=== PATIENT | female | born 1990 | race American Indian/Alaskan Native ===

== ENCOUNTER 2018-04-21 10:12 | Emergency (ER) | payer OTHER ==
[2018-04-21 10:35] VITALS: BP 123/78
[2018-04-21 13:26] LABS: Bilirubin,Urine NEG (Negative); Blood,Urine NEG (Negative); Color,Urine Yellow (Yellow); Mucus,Urine FEW /HPF; Protein,Urine <15 mg/dL mg/dL (Negative); Urobilinogen,Urine < 2.0 mg/dL (<2.0); WBC,Urine < 1.0 /HPF (0.0-6.0)
--- NOTE | 2018-04-21 13:27 | Emergency Department Report ---
HPI - General Chief Complaint: Urogenital-Female Time Seen by Provider: 04/21/18 12:24 - HPI HPI: 27-year-old female presents to the emergency department with complaint of possible exposure to an STD. Patient says that she's been having some throbbing pain to the vagina for the past 2 days. She also complains of some mild discharge. She says that one of her sexual partners said that they had trichomoniasis. She otherwise denies any previous history of any STD or past medical history. She denies any dysuria, fever, nausea, vomiting, back pain. No recent travel or sick contacts at home. She has not taken anything for her symptoms prior to arrival. ED Past Medical Hx - Past Medical History Previous Medical History?: No - Surgical History Past Surgical History?: No - Social History Smoking Status: Never Smoker Substance Use Type: Alcohol - Medications Home Medications: Home Medications Medication Instructions Recorded Confirmed Last Taken Type metroNIDAZOLE [Flagyl] 500 mg PO Q12HR #14 tab 04/21/18 Unknown Rx ED Review of Systems ROS: Stated complaint: ABD PAIN Other details as noted in HPI Comment: All other systems reviewed and negative Constitutional: denies: chills, fever Eyes: denies: eye pain, vision change ENT: denies: ear pain, throat pain Respiratory: denies: cough, shortness of breath Cardiovascular: denies: chest pain, palpitations Gastrointestinal: denies: abdominal pain, vomiting Genitourinary: discharge. denies: dysuria Musculoskeletal: denies: back pain, arthralgia Skin: denies: rash, lesions Neurological: denies: headache, weakness Physical Exam - Physical Exam Vital Signs: Vital Signs 04/21/18 10:33 Temperature 97.9 F Pulse Rate 65 Respiratory 18 Rate Blood Pressure 123/78 O2 Sat by Pulse 98 Oximetry Physical Exam: GENERAL: The patient is well-developed well-nourished. HEENT: Normocephalic. Atraumatic. Patient has moist mucous membranes. EYES: Extraocular motions are intact. Pupils are equal and reactive to light bilaterally. NECK: Supple. Trachea is midline. CHEST/LUNGS: Clear to auscultation. There is no respiratory distress noted. HEART/CARDIOVASCULAR: Regular. There is no tachycardia. There is no obvious murmur. ABDOMEN: Abdomen is soft, nontender. Patient has normal bowel sounds. There is no abdominal distention. SKIN: Skin is warm and dry. NEURO: The patient is awake, alert, and oriented. The patient is cooperative. The patient has no focal neurologic deficits. The patient has normal speech. MUSCULOSKELETAL: There is no tenderness or deformity. There is no evidence of acute injury. : There is some malodorous thin white vaginal discharge seen in the vaginal vault. No vaginal or labial lesions. ED Course Vital Signs 04/21/18 10:33 Temperature 97.9 F Pulse Rate 65 Respiratory 18 Rate Blood Pressure 123/78 O2 Sat by Pulse 98 Oximetry - Reevaluation(s) Reevaluation #1: The pelvic examination was done with nurse Ofelia as a stroke coordinator. 04/21/18 18:00 ED Medical Decision Making - Medical Decision Making This patient presents to the emergency department with complaint of a throbbing sensation to the vagina and some vaginal discharge and questionable exposure to trichomoniasis. Urinalysis does not show any urinary tract infection and the patient is not . A pelvic examination was done and a wet prep was sent that came back positive for bacterial vaginosis but negative for trichomoniasis. The patient will be placed on Flagyl. We sent the samples for testing of gonorrhea and chlamydia and if positive the patient will be contacted and started on antibiotics for this. Otherwise she has been encouraged to follow up with primary care and [facility]. She will return to the ER with any worsening of her symptoms or any acute distress. - Differential Diagnosis PV, trichomoniasis, UTI, Critical Care Time: No Critical care attestation.: If time is entered above; I have spent that time in minutes in the direct care of this critically ill patient, excluding procedure time. ED Disposition Clinical Impression: Bacterial vaginosis Disposition: DC-01 TO HOME OR SELFCARE Is pt being admited?: No Condition: Stable Instructions: Bacterial Vaginosis (ED) Additional Instructions: Please follow up with a primary care physician and/or [facility]. Return to the emergency Department with any worsening of your symptoms or any acute distress. I have prescribed an antibiotic for you to treat the bacterial vaginosis, Flagyl/metronidazole. This medication has a very bad reaction if it is mixed with alcohol of any quantity and can cause nausea, vomiting and abdominal pain. Do not drink any alcohol for the duration of this antibiotic and for 2 days after you finish it. Prescriptions: metroNIDAZOLE [Flagyl] 500 mg PO Q12HR #14 tab Referrals: NAA BERNARD MD [Primary Care Provider] - 3-5 Days [facility] [Outside] - 3-5 Days LIZETTE ISSA MD [Staff Physician] - 3-5 Days Forms: STI Treatment and Prevention Time of Disposition: 13:34
[2018-04-21 13:29] LABS: HCG Qualitative,Urine Negative (Negative)
== END 2018-04-21 13:38 | disposition home or self-care (01) ==
LOC: ED 10:12
DX: N76.0 Acute vaginitis (principal); B96.89 Other specified bacterial agents as the cause of diseases classified elsewhere
CPT/HCPCS: 81001; 81025; 87210; 87591

== ENCOUNTER 2018-08-31 02:59 | Emergency (ER) | payer SELFPAY ==
[2018-08-31 03:15] VITALS: BP 139/86
[2018-08-31 04:07] LABS: Bilirubin,Urine NEG (Negative); Blood,Urine NEG (Negative); Color,Urine Yellow (Yellow); Mucus,Urine FEW /HPF; Protein,Urine <15 mg/dL mg/dL (Negative); Urobilinogen,Urine < 2.0 mg/dL (<2.0); WBC,Urine < 1.0 /HPF (0.0-6.0)
[2018-08-31] MEDS ORDERED: ROCEPHIN IM ONE (06:07)
[2018-08-31] MEDS ORDERED: XYLOCAINE 1% MPF 5 mL INFILTRATI ONE (06:07)
[2018-08-31] MEDS ORDERED: ZITHROMAX PO ONE (06:08)
[2018-08-31] MEDS ORDERED: ZOFRAN ODT PO ONE (06:08)
--- NOTE | 2018-08-31 06:46 | Emergency Department Report ---
ED Female HPI - General Chief complaint: Urogenital-Female Stated complaint: ABDOMINAL PAIN Time Seen by Provider: 08/31/18 06:15 Source: patient Mode of arrival: Ambulatory Limitations: No Limitations - History of Present Illness Initial comments: Patient is an 28-year-old -Monegas[place] female with no past medical history who presents to the ED with concern over acute onset persistent suprapubic pressure and pain with vaginal discharge for the last 5 days. Patient states that she was out of state in [place] and went to a [facility], and was tested extensively 2 days ago. Patient states that she received a call from call from the [facility] clinic in [place] advising her to come to the ED for treatment since she tested positive for gonorrhea and chlamydia. Patient also came with her sexual partner was present for treatment as well. Patient denies fever, chills, nausea, vomiting, dizziness, headache, vaginal bleeding, diarrhea, dyspareunia, low back pain, cough or sore throat. MD Complaint: vaginal discharge, dysuria, pelvic pain -: Sudden, days(s) (5) Location: suprapubic Radiation: non-radiating Severity: moderate Severity scale (0 -10): 4 Quality: cramping, dull Consistency: intermittent Improves with: none Worsens with: none Are you Now?: No Associated Symptoms: denies other symptoms, vaginal discharge, abdominal pain, dysuria. denies: vaginal bleeding, nausea/vomiting, fever/chills, headaches, hematuria, seizure, shortness of breath, syncope, weakness, other - Related Data Sexually active: Yes : 0 Para: 0 A: 0 Previous Rx's Medication Instructions Recorded Last Taken Type metroNIDAZOLE [Flagyl] 500 mg PO Q12HR #14 tab 04/21/18 Unknown Rx Allergies Allergy/AdvReac Type Severity Reaction Status Date / Time No Known Allergies Allergy Unverified 04/21/18 10:18 ED Review of Systems ROS: Stated complaint: ABDOMINAL PAIN Other details as noted in HPI Constitutional: denies: chills, fever Eyes: denies: eye pain, eye discharge, vision change ENT: denies: ear pain, throat pain Respiratory: denies: cough, shortness of breath, wheezing Cardiovascular: denies: chest pain, palpitations Endocrine: no symptoms reported Gastrointestinal: abdominal pain (suprapubic). denies: nausea, diarrhea Genitourinary: dysuria, frequency, discharge. denies: urgency Musculoskeletal: denies: back pain, joint swelling, arthralgia Skin: denies: rash, lesions Neurological: denies: headache, weakness, paresthesias Psychiatric: denies: anxiety, depression Hematological/Lymphatic: denies: easy bleeding, easy bruising ED Past Medical Hx - Social History Smoking Status: Current Every Day Smoker Substance Use Type: None - Medications Home Medications: Home Medications Medication Instructions Recorded Confirmed Last Taken Type metroNIDAZOLE [Flagyl] 500 mg PO Q12HR #14 tab 04/21/18 Unknown Rx ED Physical Exam - General Limitations: No Limitations General appearance: alert, in no apparent distress - Head Head exam: Present: atraumatic, normocephalic, normal inspection - Eye Eye exam: Present: normal appearance, PERRL, EOMI. Absent: scleral icterus, conjunctival injection, nystagmus Pupils: Present: normal accommodation - ENT ENT exam: Present: normal exam, normal orophraynx, mucous membranes moist, TM's normal bilaterally, normal external ear exam - Neck Neck exam: Present: normal inspection, full ROM - Respiratory Respiratory exam: Present: normal lung sounds bilaterally. Absent: respiratory distress, wheezes, rales, stridor, chest wall tenderness, accessory muscle use, decreased breath sounds, prolonged expiratory - Cardiovascular Cardiovascular Exam: Present: normal rhythm, bradycardia, normal heart sounds. Absent: systolic murmur, diastolic murmur, rubs, gallop - GI/Abdominal GI/Abdominal exam: Present: soft, normal bowel sounds. Absent: tenderness, guarding, hyperactive bowel sounds, hypoactive bowel sounds, mass - Rectal Rectal exam: Present: deferred - Bi-manual exam: Present: other (Deferred, patient declined, already had one 2 days ago) - Extremities Exam Extremities exam: Present: normal inspection - Back Exam Back exam: Present: normal inspection, full ROM. Absent: tenderness, CVA tenderness (L), muscle spasm, paraspinal tenderness - Neurological Exam Neurological exam: Present: alert, oriented X3, CN II-XII intact, normal gait, reflexes normal - Psychiatric Psychiatric exam: Present: normal affect, normal mood - Skin Skin exam: Present: warm, dry, intact, normal color. Absent: rash ED Course Vital Signs 08/31/18 03:09 Temperature 98.6 F Pulse Rate 58 L Respiratory 14 Rate Blood Pressure 139/86 O2 Sat by Pulse 97 Oximetry - Reevaluation(s) Reevaluation #1: 08/31/18 06:48 The patient is alert and oriented 3 and is not in distress with normal vital si gns. Urinalysis is unremarkable. Patient was immediately treated for gonorrhea and chlamydia in the ED based on the history, and the fact that the sexual partner was present during the ED visit with symptoms and signs of STD. Patient received Rocephin and azithromycin per protocol, and patient is sent home and advised to follow-up at the [facility] for further tests and treatment. Patient advised to return to the ED immediately if symptoms get worse. ED Medical Decision Making - Medical Decision Making The patient is alert and oriented 3 and is not in distress with normal vital signs. Urinalysis is unremarkable. Patient was immediately treated for gonorrhea and chlamydia in the ED based on the history, and the fact that the sexual partner was present during the ED visit with symptoms and signs of STD. Patient received Rocephin and azithromycin per protocol, and patient is sent home and advised to follow-up at the [facility] for further tests and treatment. Patient advised to return to the ED immediately if symptoms get worse. - Differential Diagnosis Acuet cervicitis; Pelvic pain, Acute PID, Acute UTI Critical care attestation.: If time is entered above; I have spent that time in minutes in the direct care of this critically ill patient, excluding procedure time. ED Disposition Clinical Impression: Sexually transmitted disease (STD), Cervicitis Disposition: DC-01 TO HOME OR SELFCARE Is pt being admited?: No Does the pt Need Aspirin: No Condition: Stable Instructions: Sexually Transmitted Diseases (ED), Cervicitis (ED) Additional Instructions: Follow-up at the [facility] for further tests and jac tment. Return to the ED immediately if symptoms get worse. Referrals: [facility] [Outside] - 3-5 Days Forms: STI Treatment and Prevention Time of Disposition: 06:43 Print Language: GREENLANDIC
== END 2018-08-31 07:02 | disposition home or self-care (01) ==
LOC: ED 02:59
DX: N72 Inflammatory disease of cervix uteri (principal); A64 Unspecified sexually transmitted disease; F17.200 Nicotine dependence, unspecified, uncomplicated
CPT/HCPCS: 81001; 87591; 96372; 99283; J0696; Q0162

== ENCOUNTER 2019-03-14 11:26 | Emergency (ER) | payer SELFPAY ==
[2019-03-14 11:46] VITALS: BP 123/73
[2019-03-14] MEDS ORDERED: metroNIDAZOLE 500 MG TAB PO ONE (11:57)
[2019-03-14] MEDS ORDERED: AZITHROMYCIN 1 GM ORAL PWDR PACKET PO ONE (11:57)
[2019-03-14] MEDS ORDERED: LIDOCAINE-MPF (1%) 10 MG/1 ML VIAL 5 ML INFILTRATI ONE (11:57)
[2019-03-14] MEDS ORDERED: ONDANSETRON 4 MG ODT TAB PO ONE (11:57)
--- NOTE | 2019-03-14 11:57 | Emergency Department Report ---
ED Dysuria HPI - HPI Chief Complaint: Abdominal Pain Stated Complaint: CHECK UP Time Seen by Provider: 03/14/19 11:54 Duration: Today Severity: Mild Symptoms: Dysuria: No, Frequency: No, Suprapubic Pain: No, Flank Pain: No, Fever: No, Hematuria: No, Abdominal Pain: No, Previous UTI's: No Other History: 28 yo AA female; - comes with SO who has STI. Given pt being empiracally treated. No symptoms at this time. Last treated in August- now with same partner who admits to [facility] ED Review of Systems ROS: Stated complaint: CHECK UP Other details as noted in HPI Comment: All other systems reviewed and negative ED Past Medical Hx - Past Medical History Previous Medical History?: No - Surgical History Past Surgical History?: No - Social History Smoking Status: Never Smoker Substance Use Type: None - Medications Home Medications: Home Medications Medication Instructions Recorded Confirmed Last Taken Type metroNIDAZOLE [Flagyl] 500 mg PO Q12HR #14 tab 04/21/18 Unknown Rx Dysuria Exam - Exam General: Vital signs noted. No distress. Alert and acting appropriately. Exam: Yes Moist Mucous Membranes, No CVA Tenderness, No Abdominal Tenderness, No Rigidity or Guarding ED Course Vital Signs 03/14/19 11:42 Temperature 98.4 F Pulse Rate 71 Respiratory 16 Rate Blood Pressure 123/73 O2 Sat by Pulse 100 Oximetry ED Medical Decision Making - Medical Decision Making empiric STI treatment given and known exposure to STI Vital Signs 03/14/19 11:42 Temperature 98.4 F Pulse Rate 71 Respiratory 16 Rate Blood Pressure 123/73 O2 Sat by Pulse 100 Oximetry Critical care attestation.: If time is entered above; I have spent that time in minutes in the direct care of this critically ill patient, excluding procedure time. ED Disposition Clinical Impression: Exposure to STD, Disposition: DC-01 TO HOME OR SELFCARE Is pt being admited?: No Does the pt Need Aspirin: No Condition: Stable Additional Instructions: safe sex Referrals: SUSI VALDEZ MD [Staff Physician] - 3-5 Days Time of Disposition: 11:56
== END 2019-03-14 13:06 | disposition home or self-care (01) ==
LOC: ED 11:26
DX: Z20.2 Contact with and (suspected) exposure to infections with a predominantly sexual mode of transmission (principal); Z79.899 Other long term (current) drug therapy
CPT/HCPCS: 96372; 99282; J0696; Q0162

== ENCOUNTER 2019-10-04 05:21 | Inpatient (IN) | payer MEDICAID ==
[2019-10-04] MEDS ORDERED: LACTATED RINGERS 1,000 ML ONE (05:34)
[2019-10-04] MEDS ORDERED: AMPICILLIN/NS 2 GM/100 ML 2 GM/100 ML BAG IV ONE ×2 (05:34→06:13)
[2019-10-04] MEDS ORDERED: fentaNYL 100 MCG/2 ML INJ ONE (05:35)
[2019-10-04] MEDS ORDERED: fentaNYL 100 MCG/2 ML INJ IV PRN (06:13)
[2019-10-04 06:24] LABS: Hematocrit 37.6 % (30.3-42.9); Hemoglobin 12.5 gm/dl (10.1-14.3); Mean Corpuscular HGB Conc 33 % (30-34); Mean Corpuscular Volume 83 fl (79-97); Platelet Count 160 K/mm3 (140-440); Red Blood Count 4.55 M/mm3 (3.65-5.03); Red Cell Distribution Width 15.1 % (13.2-15.2)
[2019-10-04] MEDS ORDERED: DEXMEDETOMIDINE 200 MCG/2 ML VIAL IV ONE (06:26)
[2019-10-04] MEDS ORDERED: ONDANSETRON 4 MG/2 ML INJ IV PRN (06:50)
[2019-10-04] MEDS ORDERED: ePHEDrine SULFATE 50 MG/1 ML INJ IV PRN (06:50)
[2019-10-04] MEDS ORDERED: diphenhydrAMINE 50 MG/ML VIAL IV PRN (06:50)
[2019-10-04] MEDS ORDERED: NalbUPHINE 10 MG/1 ML INJ IV PRN (06:50)
[2019-10-04] MEDS ORDERED: NALOXONE 2 MG/2 ML INJ IV PRN (06:50)
--- NOTE | 2019-10-04 06:52 | Anesthesia Consultation ---
Anesthesia Consult and Med Hx Date of service: 10/04/19 - Airway Anesthetic Teeth Evaluation: Good ROM Head & Neck: Adequate Mental/Hyoid Distance: Adequate Mallampati Class: Class II Intubation Access Assessment: Probably Good - Pulmonary Exam CTA: Yes - Cardiac Exam Cardiac Exam: RRR - Pre-Operative Health Status ASA Pre-Surgery Classification: ASA2 Proposed Anesthetic Plan: Epidural - Pulmonary Hx Smoking: No Hx Asthma: No COPD: No Hx Pneumonia: Yes (<10 YEARS) Hx Sleep Apnea: No - Cardiovascular System Hx Hypertension: No - Central Nervous System Hx Seizures: No Hx Psychiatric Problems: No - Gastrointestinal Hx Gastroesophageal Reflux Disease: No - Endocrine Hx Renal Disease: No Hx End Stage Renal Disease: No Hx Hypothyroidism: No Hx Hyperthyroidism: No - Hematic Hx Anemia: No Hx Sickle Cell Disease: No - Other Systems Hx Alcohol Use: No
--- NOTE | 2019-10-04 06:53 | Progress Note ---
Labor Epidural - Labor Epidural Start Time: 06:31 Stop Time: 06:42 Performed by:: LÁZARO CORONEL Procedure: Patient is requesting a laboring epidural for laboring pain. Patient IDed, H&P reviewed, all questions and concerns were answered, and consent was signed. Timeout was performed at bedside. Patient in sitting position. Sterile prep and drape was performed. 3ml of 1% lidocaine skin wheal at L[3]- L [4]. 18- gauge Touhy epidural needle was advanced to loss of resistance with air technique. Negative CSF negative blood. Epidural catheter advanced to [14] centimeters. [-] Aspiration [-] test dose. Sterile dressing applied. Patient tolerated procedure.
[2019-10-04] MEDS ORDERED: LACTATED RINGERS 1,000 ML IV SCH (07:00)
[2019-10-04] MEDS ORDERED: OXYTOCIN 20 UNIT/1000ML DRIP 20 UNITS/1,000 ML BAG IV SCH (07:00)
[2019-10-04] MEDS ORDERED: fentaNYL-BUPIV 2 MCG/ML-0.125% 200 MCG/100 ML BAG EPIDURAL SCH (07:00)
[2019-10-04] MEDS ORDERED: AMPICILLIN/NS 1 GM/50 ML 1 GM/50 ML BAG IV SCH (10:00)
--- NOTE | 2019-10-04 12:32 | History and Physical Report ---
History of Present Illness Date of examination: 10/04/19 Date of admission: 10/04/19 05:37 Chief complaint: Active labor at term History of present illness: 29 yo, @ 37.6 wks, initiated care with [facility] Operator a 8.3 wks gestation. Her has been complicated by HSV exposure, GBS+ status; and morbid obesity. She presents to [facility] with reports of increase painful ctxs. She reports +FM, denies VB or LOF. Labs: A+, antibody negative; HBsAg negative; RPR non-reactive; rubella immune; HIV negative; Hgb A1c - 5.4; Vit D 9.4; varicella immune; HSV-2 - 6.45; 1hr gtt- 120; GBS positive. 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 denies: smoking, alcohol abuse, prescription drug abuse, IV drug use - Obstetrical History Expected Date of Delivery: 10/19/19 Actual Gestation: 37 Week(s) 6 Day(s) : 4 Para: 1 Hx # Term Pregnancies: 1 Number of Pregnancies: 0 Spontaneous Abortions: 2 Induced : 0 Number of Living Children: 1 #1 Gender: Male year: 2010 Birthweight: 3.232 kg Method of Delivery: Vaginal Gestational age at delivery: 38 Complications: none Medications and Allergies Allergies Allergy/AdvReac Type Severity Reaction Status Date / Time No Known Allergies Allergy Verified 10/04/19 05:36 Home Medications Medication Instructions Recorded Confirmed Last Taken Type metroNIDAZOLE [Flagyl] 500 mg PO Q12HR #14 tab 04/21/18 Unknown Rx Active Meds: Active Medications Diphenhydramine HCl (Benadryl) 12.5 mg IV Q2H PRN PRN Reason: Itching Ephedrine Sulfate (Ephedrine Sulfate) 10 mg IV Q2M PRN PRN Reason: Hypotension Fentanyl (Sublimaze) 100 mcg IV Q2H PRN PRN Reason: Pain,Severe (7-10) LABOR PAIN Oxytocin/Sodium Chloride (Pitocin/Ns 20 Unit/1000ml Drip) 20 units in 1,000 mls @ 125 mls/hr IV DIRECT FELIX Lactated Ringer's (Lactated Ringers) 1,000 mls @ 125 mls/hr IV DIRECT FELIX Last Admin: 10/04/19 07:04 Dose: 125 mls/hr Documented by: Fentanyl/Bupivacaine/Sodium Chlor (Fentanyl-Bupiv 2 Mcg/Ml-0.125%) 200 mcg in 100 mls @ 12 mls/hr EPIDURAL TITR FELIX; Protocol Last Admin: 10/04/19 07:53 Dose: 12 mls/hr Documented by: Ampicillin Sodium (Ampicillin/Ns 1 Gm/50 Ml) 1 gm in 50 mls @ 100 mls/hr IV Q4H FELIX; Protocol Last Admin: 10/04/19 09:50 Dose: 100 mls/hr Documented by: Nalbuphine HCl (Nalbuphine) 2.5 mg IV Q2H PRN PRN Reason: Itching Naloxone HCl (Naloxone) 0.2 mg IV Q5M PRN PRN Reason: Respiratory sedation Ondansetron HCl (Zofran) 4 mg IV Q8H PRN PRN Reason: Nausea And Vomiting Review of Systems All systems: negative Genitourinary: contractions - Vital Signs Vital signs: Vital Signs Temp Pulse Resp BP 97.4 F L 82 18 140/72 10/04/19 05:29 10/04/19 05:29 10/04/19 05:29 10/04/19 05:29 Temp Pulse Resp BP Pulse Ox 97.7 F 80 17 95/51 100 10/04/19 09:02 10/04/19 12:04 10/04/19 09:02 10/04/19 12:04 10/04/19 12:04 - Physical Exam Breasts: Positive: normal Cardiovascular: Regular rate Lungs: Positive: Normal air movement Vagina: Positive: discharge (bloody show) Extremities: Positive: normal Deep Tendon Reflex Grade: Normal +2 - Obstetrical FHR: category 1 Uterine Contraction Monitor Mode: External Cervical Dilatation: 9 (vertex) Cervical Effacement Percentage: 90 station: 0 - +1 Uterine Contraction Frequency (min): 2-3 Uterine Contraction Pattern: Regular Uterine Tone Measurement Phase: Resting Uterine Contraction Intensity: Strong/Firm Results Result Diagrams: 10/04/19 05:00 Abnormal lab results 10/04/19 Range/Units 05:00 WBC 12.1 H (4.5-11.0) K/mm3 All other labs normal. Assessment and Plan - Patient Problems (1) Active labor at term Current Visit: Yes Status: Acute Plan to address problem: Admit to L & D Pain meds as desired Anticipate (2) Positive GBS test Current Visit: Yes Status: Acute Plan to address problem: GBS protocol as directed (3) HSV-2 seropositive Current Visit: Yes Status: Acute
[2019-10-04] MEDS ORDERED: PROMETHAZINE 25 MG TAB PO PRN (13:33)
[2019-10-04] MEDS ORDERED: WITCH HAZEL/ GLYCERIN PAD TP PRN (13:33)
[2019-10-04] MEDS ORDERED: MAGNESIUM HYDROXIDE (MOM) ORAL LIQD UDC PO PRN (13:33)
[2019-10-04] MEDS ORDERED: oxyCODONE /ACETAMINOPHEN 5-325MG TAB PO PRN (13:33)
[2019-10-04] MEDS ORDERED: PROMETHAZINE 25 MG RECT SUPP PR PRN (13:33)
[2019-10-04] MEDS ORDERED: LANOLIN/ZINC/DIMETHICONE (LANSINOH) 7 GM TP PRN (13:33)
[2019-10-04] MEDS ORDERED: diphenhydrAMINE 25 MG CAP PO PRN (13:33)
--- NOTE | 2019-10-04 13:48 | Procedure Note ---
OB Delivery Note - Delivery Date of Delivery: 10/04/19 (1312) Surgeon: KRISTIN MORROW (CNM) Estimated blood loss: 200cc - Vaginal Delivery presentation: vertex Delivery position: OA (YANY) Delivery induction: none Delivery augmentation: rupture of membranes (SROM @ 1120) Delivery monitor: external FHT, external uterine Route of delivery: Delivery placenta: spontaneous (1316, resendez) Delivery cord: nuchal cord (x1, reduced at perineum) Episiotomy: none Delivery laceration: none Anesthesia: epidural Delivery comments: of viable, male, alert, screaming , placed directly on maternal abdomen. Cord double clamped, cut by FOB. Placenta spontaneously delivered, mal, disposed per hospital policy. Uterus firm @ U -2, hemostasis chelita ntained. Perineum intact. Mother and baby safe, stable, left in care of RN. - A at 1 minute: 9 at 5 minutes: 9 Infant Gender: Male (Weight: 3187 gms (7lbs 4 ozs) 18.5 inches)
[2019-10-04] MEDS: IBUPROFEN 600 MG TAB PO SCH (16:19)
[2019-10-05] MEDS: IBUPROFEN 600 MG TAB PO SCH ×2 (00:48→06:03)
[2019-10-05 04:15] LABS: Hematocrit 32.8 % (30.3-42.9); Hemoglobin 10.8 gm/dl (10.1-14.3)
[2019-10-05] MEDS ORDERED: DIPHtheria,PERTUSSIS(ACELL),TETANUS VACCINE/PF 0.5 ML VIAL IM ONE (05:08)
--- NOTE | 2019-10-05 07:42 | Post Anesthesia Evaluation ---
- Post Anesthesia Evaluation Patient Participated: Yes Airway Patent: Yes Stable Respiratory Function: Yes Nausea/Vomiting: No Temp > 96.8F: Yes Pain Manageable: Yes Adequeate Hydration: Yes Anesthesia Complications: No Block Receding Appropriately: Yes Patient on Ventilator: No
--- NOTE | 2019-10-05 10:01 | Progress Note ---
Assessment and Plan A: PPD1 VSS/Afebrile Anemia P: Continue monitoring Ferrous Sulfate QD D/C in am if stable - Patient Problems (1) Anemia Current Visit: Yes Status: Acute Qualifiers: Anemia type: iron deficiency Subjective - Subjective Date of service: 10/05/19 Principal diagnosis: Patient reports: appetite normal, voiding normally, pain well controlled, ambulating normally [place]: doing well Objective - Vital Signs Latest vital signs: Vital Signs Temp Pulse Resp BP BP Pulse Ox 10/05/19 07:41 96.6 F L 18 120/70 10/04/19 23:45 68 100 10/04/19 23:44 98.2 F 20 116/53 10/04/19 15:05 98.3 F 72 18 115/60 98 10/04/19 14:45 98.1 F 10/04/19 14:33 65 79 L 10/04/19 14:31 71 100 10/04/19 14:28 75 114/58 10/04/19 14:26 73 100 10/04/19 14:21 79 122/59 100 10/04/19 14:16 84 100 10/04/19 14:11 76 100 10/04/19 14:06 82 100 10/04/19 13:58 82 127/64 10/04/19 13:44 90 127/70 10/04/19 13:34 82 100 10/04/19 13:29 80 100 10/04/19 13:28 83 131/65 10/04/19 13:24 86 100 10/04/19 13:19 90 90 10/04/19 12:36 86 115/59 10/04/19 12:24 78 99 10/04/19 12:19 80 100 10/04/19 12:14 83 100 10/04/19 12:09 76 100 10/04/19 12:04 80 95/51 100 10/04/19 11:59 80 100 10/04/19 11:54 77 99 10/04/19 11:49 80 100 10/04/19 11:44 84 100 10/04/19 11:39 82 100 10/04/19 11:35 79 110/60 10/04/19 11:34 91 H 100 10/04/19 11:29 91 H 100 10/04/19 11:04 76 118/65 10/04/19 10:36 80 112/59 10/04/19 10:08 87 100 10/04/19 10:05 87 113/67 10/04/19 10:03 77 100 10/04/19 09:58 83 99 Intake and Output 10/04/19 10/05/19 10/05/19 22:59 06:59 14:59 Intake Total 320 200 Output Total 700 Balance -380 200 Intake: Oral 320 200 Output: Urine 700 Void 700 Other: Total, Intake Amount 200 200 Total, Output Amount 700 # Voids Void 1 1 - Exam Breasts: Present: normal Abdomen: Present: normal appearance, soft, normal bowel sounds Vulva: both: normal Uterus: Present: normal, firm Extremities: Present: normal
--- NOTE | 2019-10-05 10:06 | Discharge Summary ---
Providers - Providers Date of Admission: 10/04/19 05:37 Date of discharge: 10/06/19 Attending physician: BRENDA GARCIA Primary care physician: BRENDA GARCIA Hospitalization Reason for admission: active labor Delivery: Episiotomy: none Laceration: none Other procedures: none complications: none Discharge diagnosis: IUP at term delivered baby: male Condition at discharge: Good Disposition: DC-01 TO HOME OR SELFCARE - Discharge Diagnoses (1) Anemia Status: Acute Qualifiers: Anemia type: iron deficiency Plan - Discharge Medications Prescriptions: Ferrous Sulfate [Feosol 325 MG tab] 325 mg PO QDAY 90 Days #90 tablet Vit-Fe Fumar-FA [ Vitamin] 1 tab PO QDAY 90 Days #90 tablet - Provider Discharge Summary Activity: routine, no sex for 6 weeks, no heavy lifting 4 weeks, no strenuous exercise Diet: routine Instructions: routine Additional instructions: [] Smoking cessation referral if applicable(refer to patient education folder for contact #) [] Refer to [facility]'s [facility] Booklet Call your doctor immediately for: * Fever > 100.5 * Heavy vaginal bleeding ( >1 pad per hour) * Severe persistent headache * Shortness of breath * Reddened, hot, painful area to leg or breast * Drainage or odor from incision. * Keep incision clean and dry at all times and follow doctor's instructions regarding bathing/showering - Follow up plan Follow up: BRENDA GARCIA MD [Primary Care Provider] - 6 Weeks
[2019-10-05] MEDS ORDERED: FERROUS SULFATE 325 MG TAB PO SCH (13:00)
[2019-10-05 16:38] VITALS: BP 125/67
== END 2019-10-05 18:30 | disposition home or self-care (01) | DRG 774 ==
LOC: TRG 05:21 → LD 05:37 → OB 15:03
PROVIDERS: ADMIT Obstetrics & Gynecology; ATTEND Obstetrics & Gynecology
PROC: 10E0XZZ Delivery of Products of Conception, External Approach (ICD-10-PCS; principal; 2019-10-04)
PROC: 3E0R3BZ Introduction of Anesthetic Agent into Spinal Canal, Percutaneous Approach (ICD-10-PCS; 2019-10-04)
PROC: 00HU33Z Insertion of Infusion Device into Spinal Canal, Percutaneous Approach (ICD-10-PCS; 2019-10-04)
PROC: 3E0234Z Introduction of Serum, Toxoid and Vaccine into Muscle, Percutaneous Approach (ICD-10-PCS; 2019-10-05)
DX: O69.81X0 Labor and delivery complicated by cord around neck, without compression, not applicable or unspecified (principal); O98.52 Other viral diseases complicating childbirth; B00.9 Herpesviral infection, unspecified; O99.02 Anemia complicating childbirth; D50.8 Other iron deficiency anemias; O99.824 Streptococcus B carrier state complicating childbirth; O99.214 Obesity complicating childbirth; E66.01 Morbid (severe) obesity due to excess calories; Z3A.37 37 weeks gestation of pregnancy; Z37.0 Single live birth; Z79.899 Other long term (current) drug therapy
CPT/HCPCS: 36415; 85014; 85018; 85027; 86592; 86850; 86900; 86901; 90471; 90715; G0378; J0290; J2590; J3010; J3490; J7120